=== PATIENT | male | born 1945 | race Caucasian/White ===

== ENCOUNTER 2022-04-19 00:45 | Emergency (ER) | payer MEDICARE, MEDICAID ==
[2022-04-19] MEDS ORDERED: Sodium Chloride 0.9% 10 ML Syringe FLUSH PRN (01:25)
[2022-04-19] MEDS ORDERED: Iopamidol 612 MG/ML 100 ML Bottle IV ONE (01:45)
[2022-04-19] MEDS ORDERED: Sodium Chloride 0.9% 50 ML IV SCH (01:45)
[2022-04-19 02:01] LABS: ESTIMATED GFR 57 mL/min (>60)
== END 2022-04-19 03:05 | disposition home or self-care (01) ==
LOC: JP.ED 00:45
DX: K92.2 Gastrointestinal hemorrhage, unspecified (principal); K21.9 Gastro-esophageal reflux disease without esophagitis; I10 Essential (primary) hypertension; F17.210 Nicotine dependence, cigarettes, uncomplicated; Z20.822 Contact with and (suspected) exposure to COVID-19; Z79.82 Long term (current) use of aspirin; Z79.899 Other long term (current) drug therapy
CPT/HCPCS: 36415; 74177; 80053; 82272; 85025; 85610; 85730; 86850; 86900; 86901; 99285; J3490; Q9967; U0002

== ENCOUNTER 2022-05-20 08:55 | Day surgery (SDC) | payer MEDICARE, MEDICAID ==
[2022-05-20] MEDS: Lactated Ringers 1,000 ML IV SCH (09:56)
[2022-05-20] MEDS ORDERED: fentaNYL 100 MCG/2 ML SDV ONE (10:06)
[2022-05-20] MEDS ORDERED: Propofol 200 MG/20 ML SDV ONE (10:06)
[2022-05-20] MEDS: Propranolol 60 MG Cap.ER PO ONE (10:19)
[2022-05-20] MEDS: Lisinopril 10 MG Tab PO ONE (10:19)
== END 2022-05-20 12:22 | disposition home or self-care (01) ==
LOC: JP.SDS 08:55
PROVIDERS: ATTEND Family Medicine
DX: K57.31 Diverticulosis of large intestine without perforation or abscess with bleeding (principal); I10 Essential (primary) hypertension; K21.9 Gastro-esophageal reflux disease without esophagitis; E78.5 Hyperlipidemia, unspecified; F17.200 Nicotine dependence, unspecified, uncomplicated; J44.9 Chronic obstructive pulmonary disease, unspecified
CPT/HCPCS: 45378; A9270; J2704; J3010; J7120

== ENCOUNTER 2023-07-21 12:25 | Emergency (ER) | payer MEDICARE, MEDICAID | END 2023-07-21 17:10 | disposition home or self-care (01) | LOC: JP.ED 12:25 | DX: T83.9XXA Unspecified complication of genitourinary prosthetic device, implant and graft, initial encounter (principal); F17.210 Nicotine dependence, cigarettes, uncomplicated; M19.90 Unspecified osteoarthritis, unspecified site; K21.9 Gastro-esophageal reflux disease without esophagitis; I10 Essential (primary) hypertension; Z79.899 Other long term (current) drug therapy; Z79.82 Long term (current) use of aspirin | CPT/HCPCS: 99283 ==